=== PATIENT | male | born 1935 | race Caucasian/White ===

== ENCOUNTER 2025-02-04 21:40 | Emergency (ER) | payer MEDICARE ==
[2025-02-04 21:59] LABS: #Basophils 0.03 10x3/uL (0.0-0.2); #Eosinophils 0.26 10x3/uL (0.0-0.5); #Monocytes 0.70 10x3/uL (0.0-1.1); #Neutrophils 4.29 10x3/uL (1.5-8.4); %Basophils 0.5 % (0.0-2.0); %Eosinophils 4.3 % (0.0-6.0); %Lymphocytes 11.6 % (18.0-47.0); %Monocytes 11.6 % (0.0-10.0); %Neutrophils 71.5 % (40.0-75.0); Hematocrit 28.7 % (38.8-50.0); Hemoglobin 9.7 g/dL (13.5-17.5); Mean Corpuscular Hemoglobin 30.5 pg (27.0-33.0); Mean Corpuscular Volume 90.3 fL (81.2-95.1); Platelet Count 153 10x3/uL (150-450); Red Blood Cell (RBC) Count 3.18 10x6/uL (4.32-5.72); White Blood Cell (WBC) Count 6.01 10x3/uL (3.5-10.5)
[2025-02-04 22:13] LABS: ALT (SGPT) 19 U/L (Less than 45); AST (SGOT) 21 U/L (11-34); Albumin 3.4 g/dL (3.1-4.5); Alkaline Phosphatase 55 U/L (40-110); Anion Gap 12 mmol/L (10-20); BUN (Urea Nitrogen) 43 mg/dL (8.4-25.7); Bilirubin, Total 0.2 mg/dL (0.3-1.2); Calc. Creatinine Clearance 0 mL/min (70-130); Calcium 8.4 mg/dL (7.8-10.44); Carbon Dioxide 19 mmol/L (23-31); Chloride 114 mmol/L (98-107); Globulin 2.4 g/dL (2.4-3.5); Glucose 145 mg/dL (83-110); Magnesium 2.1 mg/dL (1.6-2.6); Potassium 4.1 mmol/L (3.5-5.1); Sodium 141 mmol/L (136-145)
[2025-02-04 22:19] LABS: Troponin I Less than 0.010 ng/mL (< 0.028)
[2025-02-04] MEDS ORDERED: Rocuronium Bromide 10 MG/ML (10ML VIAL) ONE (22:28)
[2025-02-04] MEDS ORDERED: Etomidate 40 MG (20 mL) VIAL ONE (22:28)
[2025-02-04] MEDS ORDERED: levETIRAcetam 500 MG (5 mL) VIAL ONE (22:35)
[2025-02-04] MEDS ORDERED: niCARdipine 25 MG/10 ML SDV ONE (22:38)
[2025-02-04 22:43] LABS: Actual Bicarbonate (HCO3a) 23.3 mEq/L (22-28); Analyzer IN Cardio CS ER; Base Excess (BEa) -0.8 mEq/L (-2.0 to +3.0); CO2 Tension 36.3 mmHg (35.0-45.0); Calcium, Ionized (arterial) 1.19 mmol/L (1.12-1.30); Hematocrit-ABG 33 % (42.0-52.0); Hemoglobin (Hb) 11.1 g/dL (14.0-18.0); O2 Tension (PaO2), arterial 97.3 mmHg (> 60.0); Potassium - ABG Lab 4.01 mmol/L (3.70-5.30); Puncture Site Right Brachial art; pH, Arterial 7.425 (7.35-7.45)
[2025-02-04 22:44] LABS: ALV-art Gradient 7.055 mmHg (0-20)
[2025-02-04 23:03] LABS: INR-International Normal Ratio 1.1; PTT 27.3 sec (22.0-33.0); Prothrombin Time 11.9 sec (9.5-12.1)
== END 2025-02-04 23:47 | disposition short-term general hospital (02) ==
LOC: CSHERS 21:40
DX: S06.5X0A Traumatic subdural hemorrhage without loss of consciousness, initial encounter (principal); R41.82 Altered mental status, unspecified; E78.00 Pure hypercholesterolemia, unspecified; W17.89XA Other fall from one level to another, initial encounter; Z55.6 Problems related to health literacy
CPT/HCPCS: 36600; 70450; 71045; 72125; 72170; 80053; 82805; 82962; 83735; 84484; 85025; 85610; 85730; 93005; J1953; J2272; J7799; 36416; 96365; 96367; 96375